=== PATIENT | female | born 1950 | race Caucasian/White ===

== ENCOUNTER 2018-01-19 10:31 | Inpatient (IN) | payer MEDICARE, MEDICAID ==
[~2018-01-19] VITALS: Ht 160 cm; Wt 77.3 kg
[2018-01-19] MEDS ORDERED: HYPERTENSION (10:37)
[2018-01-19] MEDS ORDERED: INSULIN (10:37)
[2018-01-19] MEDS ORDERED: ONDANSETRON HCL 4MG/2ML INJ IV STA (10:54)
[2018-01-19] MEDS ORDERED: SODIUM CHLORIDE 0.9% 1,000 ML IV ONE (10:54)
[2018-01-19] MEDS ORDERED: LORAZEPAM 0.5MG TABLET PO ONE (11:00)
[2018-01-19] MEDS ORDERED: MECLIZINE 12.5MG TABLET PO ONE (11:00)
[2018-01-19 11:24] LABS: BASOPHILS % 0.6 % (0.0-2.0); EOSINOPHILS % 3.7 % (0.0-5.0); HEMATOCRIT. 36.1 % (36.0-48.0); HEMOGLOBIN. 11.9 g/dL (12.0-16.0); LYMPHOCYTES % 18.8 % (20.0-50.0); MEAN CORPUSCULAR HEMOGLOBIN 29.3 pg (28.0-32.0); MEAN CORPUSCULAR VOLUME 89.1 fL (81.0-99.0); MEAN PLATELET VOLUME 11.3 fl (7.4-10.4); MONOCYTES % 6.2 % (2.0-8.0); NEUTROPHILS % 70.7 % (40.0-76.0); PLATELET 203 x1000/uL (130-400); RED BLOOD CELL COUNT 4.05 mill/uL (4.2-5.4); RED CELL DISTRIBUTION WIDTH 13.4 % (11.6-14.6)
[2018-01-19 11:49] LABS: CLARITY URINE CLEAR (CLEAR); COLOR URINE YELLOW (YELLOW); KETONES URINE NEGATIVE (NEGATIVE); LEUKOCYTE ESTERASE URINE NEGATIVE (NEGATIVE); NITRITE URINE NEGATIVE (NEGATIVE); OCCULT BLOOD URINE TRACE (NEGATIVE); PH URINE 5.5 (4.5-8.0); PROTEIN URINE 3+ (NEGATIVE); SPECIFIC GRAVITY URINE 1.011 (1.005-1.030); UROBILINOGEN URINE 0.2 E.U./dL (0.2-1.0)
[2018-01-19 12:06] LABS: CHLORIDE 109 mEq/L (98-107)
[2018-01-19 13:03] LABS: PROTHROMBIN TIME 10.5 sec (9.1-11.1)
[2018-01-19] MEDS ORDERED: CEFTRIAXONE 1 G PREMIX 50 ML IV ONE (13:15)
[2018-01-19] MEDS ORDERED: CLONIDINE 0.2MG TABLET PO ONE (14:15)
[2018-01-19] MEDS ORDERED: MECLIZINE 25MG TABLET PO PRN (14:15)
[2018-01-19] MEDS ORDERED: NIFEDIPINE XL 60MG TAB PO SCH (14:15)
[2018-01-19] MEDS ORDERED: NITROGLYCERIN OINT 1GM/INCH UDPKT TD ONE (14:15)
[2018-01-19] MEDS ORDERED: FUROSEMIDE 100MG/10ML VIAL IVP NR (15:15)
[2018-01-19] MEDS ORDERED: SODIUM BICARBONATE 8.4% 1 MEQ/ML 50ML SYR IV NR (15:15)
[2018-01-19] MEDS ORDERED: SODIUM BICARBONATE 4% (2.4MEQ) 5ML VIAL IV ONE (15:17)
[2018-01-19] MEDS ORDERED: LIDOCAINE HCL 1% 10 MG/ML 10ML VIAL ONE (15:17)
[2018-01-19 16:43] LABS: BG CARBOXYHEMOGLOBIN 0.5 % (0.5-1.5); BG DEOXYHEMOGLOBIN 4.1 % (0.0-5.0); BG FRACTION INSPIRED OXYGEN 21; BG HCO3 ACT 14.6 mmol/L (22.0-26.0); BG METHEMOGLOBIN 0.3 % (0.0-1.5); BG OXYGEN SATURATION 95.9 % (92.0-98.5); BG OXYHEMOGLOBIN 95.1 % (94.0-97.0); BG PCO2 28.8 mmHg (35.0-45.0); BG PH 7.323 (7.350-7.450); BG PO2 85.7 mmHg (75.0-100.0); BG SAMPLE SITE LEFT RADIAL; BG TOTAL HEMOGLOBIN 13.4 g/dL (12.0-18.0); BG VENT MODE ROOM AIR
[2018-01-19] MEDS ORDERED: CARV3.1242 PO (18:25)
[2018-01-19] MEDS ORDERED: LOSA25TA12 PO (18:25)
[2018-01-19] MEDS ORDERED: INSU100I28 SQ (18:27)
[2018-01-19 18:28] VITALS: BP 166/83
[2018-01-19] MEDS ORDERED: HEPARIN SODIUM 1,000 UNIT/1ML VIAL IV NR (18:39)
[2018-01-19] MEDS ORDERED: CITRIC ACID/SODIUM CITRATE SOLN 30ML UDC PO SCH (19:30)
[2018-01-19 19:37] VITALS: BP 115/61
[2018-01-19] MEDS: CITRIC ACID/SODIUM CITRATE SOLN 30ML UDC PO SCH (21:19)
[2018-01-19] MEDS ORDERED: DEXTROSE 50% WATER 50ML SYRINGE IV PRN (22:15)
[2018-01-19] MEDS: HYDROCODONE/ACETAMINOPHEN 10/325MG TABLET PO PRN (22:19)
[2018-01-20] VITALS (10 sets, daily range): BP systolic 129–180; BP diastolic 54–87
[2018-01-20] MEDS: HYDROCODONE/ACETAMINOPHEN 10/325MG TABLET PO PRN ×2 (05:21→21:07)
[2018-01-20 05:29] LABS: BASOPHILS % 0.1 % (0.0-2.0); EOSINOPHILS % 2.8 % (0.0-5.0); HEMATOCRIT. 30.6 % (36.0-48.0); HEMOGLOBIN. 10.3 g/dL (12.0-16.0); LYMPHOCYTES % 10.8 % (20.0-50.0); MEAN CORPUSCULAR HEMOGLOBIN 29.7 pg (28.0-32.0); MEAN CORPUSCULAR VOLUME 87.8 fL (81.0-99.0); MEAN PLATELET VOLUME 11.2 fl (7.4-10.4); MONOCYTES % 6.8 % (2.0-8.0); NEUTROPHILS % 79.5 % (40.0-76.0); PLATELET 157 x1000/uL (130-400); RED BLOOD CELL COUNT 3.48 mill/uL (4.2-5.4); RED CELL DISTRIBUTION WIDTH 13.3 % (11.6-14.6)
[2018-01-20 05:43] LABS: PHOSPHORUS 4.8 mg/dL (2.5-4.9)
[2018-01-20] MEDS: BLOOD SUGAR DIAGNOSTIC STRIP TEST SCH ×4 (06:44→20:25)
[2018-01-20 08:04] LABS: HEPATITIS B SURFACE AB < 3.1 mIU/mL
[2018-01-20 08:15] LABS: HEPATITIS B SURFACE ANTIGEN NEGATIVE
[2018-01-20 08:43] LABS: HEPATITIS B CORE AB IGM NEGATIVE
[2018-01-20] MEDS: CARVEDILOL 3.125 MG TABLET PO SCH ×2 (08:50→20:24)
[2018-01-20] MEDS: LOSARTAN POTASSIUM 25 MG TABLET PO SCH (08:51)
[2018-01-20] MEDS: CITRIC ACID/SODIUM CITRATE SOLN 30ML UDC PO SCH (08:51)
[2018-01-20] MEDS: INSULIN LISPRO 100 UNITS/ML SUBCUT SCH ×4 (08:57→20:25)
[2018-01-20] MEDS ORDERED: NIFEDIPINE XL 60MG TAB PO SCH (09:00)
[2018-01-20] MEDS ORDERED: MEDICATION NOT ON FORMULARY EA (Losartan Potassium 25 MG) PO SCH (09:00)
[2018-01-20] MEDS ORDERED: IOHEXOL-350 100 ML BOTTLE ONE (12:43)
[2018-01-20] MEDS ORDERED: CEFTRIAXONE 1 G PREMIX 50 ML IV SCH (14:00)
[2018-01-20] MEDS ORDERED: LORAZEPAM 2MG/ML CPJ IV NR (17:00)
[2018-01-20] MEDS: ONDANSETRON HCL 4MG/2ML INJ IV PRN (20:23)
[2018-01-20] MEDS: CLONIDINE 0.1MG TABLET PO PRN (20:23)
[2018-01-20] MEDS: ATORVASTATIN CALCIUM 20MG TABLET PO SCH (20:23)
[2018-01-20 20:45] LABS: ETHANOL BLOOD < 10 mg/dL
[2018-01-20 20:48] LABS: LDL CHOLESTEROL 82 mg/dL (5-100)
[2018-01-20 20:49] LABS: HDL CHOLESTEROL 33 mg/dL (40-59)
[2018-01-20 20:50] LABS: T4 FREE 1.32 ng/dL (0.76-1.46)
[2018-01-20 21:57] LABS: FOLIC ACID (FOLATE) SERUM >20 ng/mL ng/mL (>5.38)
[2018-01-20] MEDS ORDERED: INSULIN GLARGINE UD 100 UNITS/ML SYR SUBCUT SCH (22:00)
[2018-01-20 22:08] LABS: VITAMIN B12 SERUM 1615 pg/mL (211-911)
[2018-01-21] VITALS (11 sets, daily range): BP systolic 133–175; BP diastolic 57–89
[2018-01-21 00:30] LABS: *BARBITURATES SCREEN URINE NEGATIVE (NEGATIVE); *BENZODIAZEPINES SCREEN URINE NEGATIVE (NEGATIVE); *COCAINE SCREEN URINE NEGATIVE (NEGATIVE); METHADONE URINE SCREEN NEGATIVE (NEGATIVE); OPIATES URINE SCREEN PRESUMTIVE POSITIVE (NEGATIVE)
[2018-01-21 00:31] LABS: *AMPHETAMINES SCREEN URINE NEGATIVE (NEGATIVE); CANNABINOID URINE SCREEN NEGATIVE (NEGATIVE); PHENCYCLIDINE URINE SCREEN NEGATIVE (NEGATIVE)
[2018-01-21 07:11] LABS: BASOPHILS % 0.2 % (0.0-2.0); EOSINOPHILS % 1.7 % (0.0-5.0); HEMATOCRIT. 31.9 % (36.0-48.0); HEMOGLOBIN. 10.6 g/dL (12.0-16.0); LYMPHOCYTES % 10.6 % (20.0-50.0); MEAN CORPUSCULAR HEMOGLOBIN 29.4 pg (28.0-32.0); MEAN CORPUSCULAR VOLUME 88.6 fL (81.0-99.0); MEAN PLATELET VOLUME 11.3 fl (7.4-10.4); NEUTROPHILS % 81.5 % (40.0-76.0); PLATELET 154 x1000/uL (130-400); RED CELL DISTRIBUTION WIDTH 13.4 % (11.6-14.6)
[2018-01-21] MEDS: BLOOD SUGAR DIAGNOSTIC STRIP TEST SCH ×4 (07:41→21:59)
[2018-01-21 07:52] LABS: PHOSPHORUS 5.3 mg/dL (2.5-4.9)
[2018-01-21 08:18] LABS: A/G RATIO 0.9 (0.7-1.7); ALBUMIN 2.6 g/dL (2.9-4.4); ALPHA-1-GLOBULIN 0.2 g/dL (0.0-0.4); BETA GLOBULIN 0.8 g/dL (0.7-1.3); M-SPIKE Not Observed g/dL (Not Observed); TOTAL PROTEIN SERUM 5.6 g/dL (6.0-8.5)
[2018-01-21] MEDS: CARVEDILOL 3.125 MG TABLET PO SCH ×2 (08:33→20:41)
[2018-01-21] MEDS: INSULIN LISPRO 100 UNITS/ML SUBCUT SCH ×4 (08:34→21:00)
[2018-01-21] MEDS: HYDROCODONE/ACETAMINOPHEN 10/325MG TABLET PO PRN ×2 (09:31→20:59)
[2018-01-21] MEDS: ENOXAPARIN 80MG/0.8ML SYR SUBCUT SCH (10:43)
[2018-01-21] MEDS ORDERED: INSULIN GLARGINE UD 100 UNITS/ML SYR SUBCUT SCH (12:30)
[2018-01-21] MEDS: CEFTRIAXONE 1 G PREMIX 50 ML IV SCH (14:21)
[2018-01-21] MEDS ORDERED: WARFARIN SODIUM 7.5MG TABLET PO NR (18:00)
[2018-01-21] MEDS: NIFEDIPINE XL 60MG TAB PO SCH (20:40)
[2018-01-21] MEDS: LOSARTAN POTASSIUM 25 MG TABLET PO SCH (20:41)
[2018-01-21] MEDS: ATORVASTATIN CALCIUM 20MG TABLET PO SCH (20:41)
[2018-01-21] MEDS: GUAIFENESIN 200MG/10ML SUGAR FREE UDC PO PRN (22:07)
[2018-01-22] VITALS (12 sets, daily range): BP systolic 101–152; BP diastolic 50–87
[2018-01-22 07:13] LABS: INR 1.1; PROTHROMBIN TIME 11.1 sec (9.1-11.1)
[2018-01-22 07:15] LABS: BASOPHILS % 0.3 % (0.0-2.0); EOSINOPHILS % 3.9 % (0.0-5.0); HEMATOCRIT. 30.3 % (36.0-48.0); HEMOGLOBIN. 10.1 g/dL (12.0-16.0); LYMPHOCYTES % 16.3 % (20.0-50.0); MEAN CORPUSCULAR HEMOGLOBIN 29.6 pg (28.0-32.0); MEAN CORPUSCULAR VOLUME 88.7 fL (81.0-99.0); MEAN PLATELET VOLUME 11.4 fl (7.4-10.4); MONOCYTES % 8.6 % (2.0-8.0); NEUTROPHILS % 70.9 % (40.0-76.0); PLATELET 144 x1000/uL (130-400); RED BLOOD CELL COUNT 3.41 mill/uL (4.2-5.4)
[2018-01-22] MEDS: BLOOD SUGAR DIAGNOSTIC STRIP TEST SCH ×4 (07:27→20:39)
[2018-01-22] MEDS: INSULIN LISPRO 100 UNITS/ML SUBCUT SCH ×4 (08:00→20:58)
[2018-01-22] MEDS: CARVEDILOL 3.125 MG TABLET PO SCH ×2 (08:24→20:37)
[2018-01-22] MEDS: LOSARTAN POTASSIUM 25 MG TABLET PO SCH ×2 (08:25→20:37)
[2018-01-22] MEDS: NIFEDIPINE XL 60MG TAB PO SCH ×2 (08:25→20:37)
[2018-01-22 09:30] LABS: PHOSPHORUS 3.3 mg/dL (2.5-4.9)
[2018-01-22] MEDS: ENOXAPARIN 80MG/0.8ML SYR SUBCUT SCH (09:39)
[2018-01-22] MEDS: CEFTRIAXONE 1 G PREMIX 50 ML IV SCH (13:08)
[2018-01-22] MEDS ORDERED: WARFARIN SODIUM 7.5MG TABLET PO NR (18:00)
[2018-01-22] MEDS: ATORVASTATIN CALCIUM 20MG TABLET PO SCH (20:37)
[2018-01-23] VITALS (11 sets, daily range): BP systolic 115–151; BP diastolic 44–79
[2018-01-23] MEDS: BLOOD SUGAR DIAGNOSTIC STRIP TEST SCH ×4 (06:29→21:50)
[2018-01-23 06:45] LABS: INR 1.4; PROTHROMBIN TIME 13.9 sec (9.1-11.1)
[2018-01-23] MEDS: INSULIN LISPRO 100 UNITS/ML SUBCUT SCH ×4 (08:00→21:45)
[2018-01-23 08:38] LABS: BASOPHILS % 0.3 % (0.0-2.0); EOSINOPHILS % 3.4 % (0.0-5.0); HEMATOCRIT. 29.3 % (36.0-48.0); HEMOGLOBIN. 9.8 g/dL (12.0-16.0); LYMPHOCYTES % 16.1 % (20.0-50.0); MEAN CORPUSCULAR HEMOGLOBIN 29.5 pg (28.0-32.0); MEAN CORPUSCULAR VOLUME 88.2 fL (81.0-99.0); MEAN PLATELET VOLUME 11.5 fl (7.4-10.4); MONOCYTES % 7.9 % (2.0-8.0); NEUTROPHILS % 72.3 % (40.0-76.0); PLATELET 142 x1000/uL (130-400); RED BLOOD CELL COUNT 3.33 mill/uL (4.2-5.4); RED CELL DISTRIBUTION WIDTH 13.1 % (11.6-14.6)
[2018-01-23] MEDS: NIFEDIPINE XL 60MG TAB PO SCH ×2 (09:00→21:47)
[2018-01-23] MEDS: CARVEDILOL 3.125 MG TABLET PO SCH ×2 (09:00→21:49)
[2018-01-23] MEDS: LOSARTAN POTASSIUM 25 MG TABLET PO SCH ×2 (09:00→21:47)
[2018-01-23 09:20] LABS: PHOSPHORUS 3.9 mg/dL (2.5-4.9)
[2018-01-23] MEDS ORDERED: MIDAZOLAM HCL 2 MG/2 ML VIAL ONE (10:20)
[2018-01-23] MEDS ORDERED: FENTANYL CITRATE/PF 50MCG/ML 2ML VIAL ONE (10:20)
[2018-01-23] MEDS ORDERED: LIDOCAINE HCL 2% JELLY 5ML ONE (10:22)
[2018-01-23] MEDS ORDERED: TETRACAINE/BENZOCAINE/BUTAMBEN 20 GM SPRAY MM ONE (10:22)
[2018-01-23] MEDS: ENOXAPARIN 80MG/0.8ML SYR SUBCUT SCH (12:29)
[2018-01-23] MEDS ORDERED: LACTULOSE 20G/30ML UDC PO PRN (14:45)
[2018-01-23] MEDS ORDERED: BISACODYL 10MG SUPP PR NR (15:17)
[2018-01-23] MEDS: CEFTRIAXONE 1 G PREMIX 50 ML IV SCH (15:27)
[2018-01-23] MEDS: LACTULOSE 20G/30ML UDC PO SCH ×2 (17:47→21:47)
[2018-01-23] MEDS ORDERED: WARFARIN SODIUM 7.5MG TABLET PO SCH (18:00)
[2018-01-23] MEDS: INSULIN GLARGINE UD 100 UNITS/ML SYR SUBCUT SCH (21:46)
[2018-01-23] MEDS: ATORVASTATIN CALCIUM 20MG TABLET PO SCH (21:49)
[2018-01-24] VITALS (12 sets, daily range): BP systolic 118–156; BP diastolic 42–76
[2018-01-24] MEDS: BLOOD SUGAR DIAGNOSTIC STRIP TEST SCH ×4 (06:59→20:31)
[2018-01-24] MEDS: LACTULOSE 20G/30ML UDC PO SCH (08:28)
[2018-01-24] MEDS: LOSARTAN POTASSIUM 25 MG TABLET PO SCH ×2 (08:50→20:31)
[2018-01-24] MEDS: NIFEDIPINE XL 60MG TAB PO SCH ×2 (08:50→21:57)
[2018-01-24] MEDS: CARVEDILOL 3.125 MG TABLET PO SCH ×2 (08:51→20:30)
[2018-01-24] MEDS: INSULIN LISPRO 100 UNITS/ML SUBCUT SCH ×4 (08:52→20:46)
[2018-01-24 09:10] LABS: BASOPHILS % 0.4 % (0.0-2.0); EOSINOPHILS % 3.1 % (0.0-5.0); HEMATOCRIT. 31.5 % (36.0-48.0); HEMOGLOBIN. 10.5 g/dL (12.0-16.0); LYMPHOCYTES % 11.5 % (20.0-50.0); MEAN CORPUSCULAR HEMOGLOBIN 29.5 pg (28.0-32.0); MEAN CORPUSCULAR VOLUME 88.4 fL (81.0-99.0); MEAN PLATELET VOLUME 11.4 fl (7.4-10.4); MONOCYTES % 7.2 % (2.0-8.0); NEUTROPHILS % 77.8 % (40.0-76.0); PLATELET 150 x1000/uL (130-400); RED BLOOD CELL COUNT 3.57 mill/uL (4.2-5.4)
[2018-01-24 09:15] LABS: INR 2.4; PROTHROMBIN TIME 24.1 sec (9.1-11.1)
[2018-01-24 09:37] LABS: PHOSPHORUS 2.9 mg/dL (2.5-4.9)
[2018-01-24] MEDS: ENOXAPARIN 80MG/0.8ML SYR SUBCUT SCH (11:01)
[2018-01-24] MEDS: CEFTRIAXONE 1 G PREMIX 50 ML IV SCH (13:45)
[2018-01-24] MEDS: DOCUSATE SODIUM 100MG CAPSULE PO SCH (16:52)
[2018-01-24] MEDS ORDERED: WARFARIN SODIUM 4MG TABLET PO SCH (18:00)
[2018-01-24] MEDS: ATORVASTATIN CALCIUM 20MG TABLET PO SCH (20:30)
[2018-01-24] MEDS: GUAIFENESIN 200MG/10ML SUGAR FREE UDC PO PRN (20:49)
[2018-01-24] MEDS: INSULIN GLARGINE UD 100 UNITS/ML SYR SUBCUT SCH (23:13)
[2018-01-25] VITALS (13 sets, daily range): BP systolic 122–165; BP diastolic 46–70
[2018-01-25] MEDS: CLONIDINE 0.1MG TABLET PO PRN (04:50)
[2018-01-25] MEDS: GUAIFENESIN 200MG/10ML SUGAR FREE UDC PO PRN ×2 (04:53→20:49)
[2018-01-25] MEDS: BLOOD SUGAR DIAGNOSTIC STRIP TEST SCH ×4 (07:25→20:38)
[2018-01-25] MEDS: INSULIN LISPRO 100 UNITS/ML SUBCUT SCH ×4 (07:44→20:49)
[2018-01-25] MEDS: DOCUSATE SODIUM 100MG CAPSULE PO SCH ×2 (09:00→18:00)
[2018-01-25] MEDS: ONDANSETRON HCL 4MG/2ML INJ IV PRN (09:35)
[2018-01-25 09:36] LABS: BASOPHILS % 0.5 % (0.0-2.0); EOSINOPHILS % 3.9 % (0.0-5.0); HEMATOCRIT. 30.2 % (36.0-48.0); HEMOGLOBIN. 9.9 g/dL (12.0-16.0); LYMPHOCYTES % 19.7 % (20.0-50.0); MEAN CORPUSCULAR HEMOGLOBIN 29.3 pg (28.0-32.0); MEAN CORPUSCULAR VOLUME 89.1 fL (81.0-99.0); MEAN PLATELET VOLUME 11.7 fl (7.4-10.4); NEUTROPHILS % 67.9 % (40.0-76.0); PLATELET 159 x1000/uL (130-400); RED BLOOD CELL COUNT 3.39 mill/uL (4.2-5.4); RED CELL DISTRIBUTION WIDTH 13.5 % (11.6-14.6)
[2018-01-25] MEDS: CARVEDILOL 3.125 MG TABLET PO SCH ×2 (09:36→20:38)
[2018-01-25] MEDS: NIFEDIPINE XL 60MG TAB PO SCH ×2 (09:36→22:12)
[2018-01-25] MEDS: LOSARTAN POTASSIUM 25 MG TABLET PO SCH ×2 (09:36→20:38)
[2018-01-25 09:41] LABS: INR 3.1; PROTHROMBIN TIME 30.8 sec (9.1-11.1)
[2018-01-25] MEDS ORDERED: NA PHOS,M-B/NA PHOS,DI-BA ENEMA 118ML PR NR (13:00)
[2018-01-25] MEDS ORDERED: NA PHOS,M-B/NA PHOS,DI-BA ENEMA 118ML PR PRN (13:15)
[2018-01-25] MEDS: CEFTRIAXONE 1 G PREMIX 50 ML IV SCH (13:28)
[2018-01-25] MEDS: ATORVASTATIN CALCIUM 20MG TABLET PO SCH (20:38)
[2018-01-25] MEDS: POLYETHYLENE GLYCOL 3350 (17GM) 1 DOSE PACK PO SCH (20:38)
[2018-01-25] MEDS: INSULIN GLARGINE UD 100 UNITS/ML SYR SUBCUT SCH (22:18)
[2018-01-26] VITALS (11 sets, daily range): BP systolic 122–154; BP diastolic 45–91
[2018-01-26 07:01] LABS: INR 2.4; PROTHROMBIN TIME 24.1 sec (9.1-11.1)
[2018-01-26 07:05] LABS: BASOPHILS % 0.4 % (0.0-2.0); EOSINOPHILS % 3.3 % (0.0-5.0); HEMATOCRIT. 29.5 % (36.0-48.0); HEMOGLOBIN. 9.8 g/dL (12.0-16.0); LYMPHOCYTES % 13.5 % (20.0-50.0); MEAN CORPUSCULAR HEMOGLOBIN 29.6 pg (28.0-32.0); MEAN CORPUSCULAR VOLUME 88.8 fL (81.0-99.0); MEAN PLATELET VOLUME 11.1 fl (7.4-10.4); MONOCYTES % 6.9 % (2.0-8.0); NEUTROPHILS % 75.9 % (40.0-76.0); PLATELET 146 x1000/uL (130-400); RED BLOOD CELL COUNT 3.32 mill/uL (4.2-5.4); RED CELL DISTRIBUTION WIDTH 13.1 % (11.6-14.6)
[2018-01-26] MEDS: BLOOD SUGAR DIAGNOSTIC STRIP TEST SCH ×4 (07:30→20:56)
[2018-01-26] MEDS: INSULIN LISPRO 100 UNITS/ML SUBCUT SCH ×4 (08:00→21:05)
[2018-01-26] MEDS: DOCUSATE SODIUM 100MG CAPSULE PO SCH ×2 (09:00→17:00)
[2018-01-26] MEDS: LOSARTAN POTASSIUM 25 MG TABLET PO SCH ×2 (09:00→20:46)
[2018-01-26] MEDS: CARVEDILOL 3.125 MG TABLET PO SCH ×2 (09:00→20:47)
[2018-01-26] MEDS: NIFEDIPINE XL 60MG TAB PO SCH ×2 (09:00→20:46)
[2018-01-26 09:09] LABS: PHOSPHORUS 3.2 mg/dL (2.5-4.9)
[2018-01-26] MEDS: CEFTRIAXONE 1 G PREMIX 50 ML IV SCH (14:37)
[2018-01-26] MEDS ORDERED: WARFARIN SODIUM 4MG TABLET PO SCH (18:00)
[2018-01-26] MEDS: ATORVASTATIN CALCIUM 20MG TABLET PO SCH (20:46)
[2018-01-26] MEDS: GUAIFENESIN 200MG/10ML SUGAR FREE UDC PO PRN (20:47)
[2018-01-26] MEDS: POLYETHYLENE GLYCOL 3350 (17GM) 1 DOSE PACK PO SCH ×2 (20:47→21:00)
[2018-01-26] MEDS: INSULIN GLARGINE UD 100 UNITS/ML SYR SUBCUT SCH (21:06)
[2018-01-27] VITALS (23 sets, daily range): BP systolic 128–175; BP diastolic 52–72
[2018-01-27 07:37] LABS: BASOPHILS % 0.5 % (0.0-2.0); EOSINOPHILS % 2.5 % (0.0-5.0); HEMATOCRIT. 30.3 % (36.0-48.0); HEMOGLOBIN. 10.1 g/dL (12.0-16.0); LYMPHOCYTES % 16.2 % (20.0-50.0); MEAN CORPUSCULAR HEMOGLOBIN 29.8 pg (28.0-32.0); MEAN CORPUSCULAR VOLUME 89.4 fL (81.0-99.0); MEAN PLATELET VOLUME 11.2 fl (7.4-10.4); MONOCYTES % 6.6 % (2.0-8.0); NEUTROPHILS % 74.2 % (40.0-76.0); PLATELET 159 x1000/uL (130-400); RED BLOOD CELL COUNT 3.39 mill/uL (4.2-5.4); RED CELL DISTRIBUTION WIDTH 13.5 % (11.6-14.6)
[2018-01-27 07:47] LABS: INR 1.7; PROTHROMBIN TIME 17.2 sec (9.1-11.1)
[2018-01-27] MEDS: INSULIN LISPRO 100 UNITS/ML SUBCUT SCH ×4 (07:48→22:49)
[2018-01-27] MEDS: BLOOD SUGAR DIAGNOSTIC STRIP TEST SCH ×4 (07:48→21:07)
[2018-01-27] MEDS: DOCUSATE SODIUM 100MG CAPSULE PO SCH ×2 (09:10→17:04)
[2018-01-27] MEDS: LOSARTAN POTASSIUM 25 MG TABLET PO SCH ×2 (09:11→21:00)
[2018-01-27] MEDS: NIFEDIPINE XL 60MG TAB PO SCH ×2 (09:11→21:00)
[2018-01-27] MEDS: CARVEDILOL 3.125 MG TABLET PO SCH ×2 (09:11→21:00)
[2018-01-27] MEDS ORDERED: SODIUM BICARBONATE 4% (2.4MEQ) 5ML VIAL IV ONE (12:52)
[2018-01-27] MEDS ORDERED: LIDOCAINE HCL 1% 10 MG/ML 10ML VIAL ONE (12:53)
[2018-01-27] MEDS ORDERED: HEPARIN 1000 UNITS/ML 10ML ONE (12:53)
[2018-01-27] MEDS ORDERED: CEFAZOLIN 1000MG PREMIX 50 ML IV ONE ×2 (13:18→14:00)
[2018-01-27] MEDS ORDERED: FENTANYL CITRATE/PF 50MCG/ML 2ML VIAL ONE (13:19)
[2018-01-27] MEDS ORDERED: MIDAZOLAM HCL 2 MG/2 ML VIAL ONE (13:19)
[2018-01-27] MEDS ORDERED: MIDAZOLAM HCL 2 MG/2 ML VIAL IV ONE (14:00)
[2018-01-27] MEDS ORDERED: FENTANYL CITRATE/PF 50MCG/ML 2ML VIAL IV ONE (14:00)
[2018-01-27] MEDS ORDERED: MIDAZOLAM HCL 5 MG/5 ML VIAL IV ONE (14:00)
[2018-01-27] MEDS ORDERED: WARFARIN SODIUM 5MG TABLET PO NR (18:00)
[2018-01-27] MEDS: ATORVASTATIN CALCIUM 20MG TABLET PO SCH (21:00)
[2018-01-27] MEDS: POLYETHYLENE GLYCOL 3350 (17GM) 1 DOSE PACK PO SCH ×2 (21:00→21:01)
[2018-01-27] MEDS: INSULIN GLARGINE UD 100 UNITS/ML SYR SUBCUT SCH (22:50)
[2018-01-27] MEDS: CLONIDINE 0.1MG TABLET PO PRN (23:01)
[2018-01-28] VITALS (11 sets, daily range): BP systolic 127–172; BP diastolic 47–76
[2018-01-28] MEDS: GUAIFENESIN 200MG/10ML SUGAR FREE UDC PO PRN (01:13)
[2018-01-28] MEDS: BLOOD SUGAR DIAGNOSTIC STRIP TEST SCH ×3 (07:08→17:20)
[2018-01-28] MEDS: INSULIN LISPRO 100 UNITS/ML SUBCUT SCH ×3 (07:09→18:01)
[2018-01-28 07:14] LABS: BASOPHILS % 0.6 % (0.0-2.0); EOSINOPHILS % 2.1 % (0.0-5.0); HEMATOCRIT. 30.1 % (36.0-48.0); LYMPHOCYTES % 12.3 % (20.0-50.0); MEAN CORPUSCULAR HEMOGLOBIN 29.8 pg (28.0-32.0); MEAN CORPUSCULAR VOLUME 89.4 fL (81.0-99.0); MEAN PLATELET VOLUME 10.8 fl (7.4-10.4); MONOCYTES % 6.2 % (2.0-8.0); NEUTROPHILS % 78.8 % (40.0-76.0); PLATELET 162 x1000/uL (130-400); RED BLOOD CELL COUNT 3.36 mill/uL (4.2-5.4); RED CELL DISTRIBUTION WIDTH 13.5 % (11.6-14.6)
[2018-01-28 07:16] LABS: PROTHROMBIN TIME 20.1 sec (9.1-11.1)
[2018-01-28] MEDS: LOSARTAN POTASSIUM 25 MG TABLET PO SCH (08:32)
[2018-01-28] MEDS: DOCUSATE SODIUM 100MG CAPSULE PO SCH ×2 (08:32→17:59)
[2018-01-28] MEDS: CARVEDILOL 3.125 MG TABLET PO SCH (08:33)
[2018-01-28] MEDS: NIFEDIPINE XL 60MG TAB PO SCH (08:34)
[2018-01-28 10:03] LABS: PHOSPHORUS 2.8 mg/dL (2.5-4.9)
[2018-01-28] MEDS ORDERED: WARFARIN SODIUM 3MG TABLET PO NR (18:00)
== END 2018-01-28 19:58 | disposition home health service (06) | DRG 45 ==
LOC: ER 10:31 → 6WST 13:21 → ENRESERV 14:02 → 5EST 01-20 14:03
PROVIDERS: ADMIT Family Medicine; ATTEND Family Medicine
PROC: 02HV33Z Insertion of Infusion Device into Superior Vena Cava, Percutaneous Approach (ICD-10-PCS; principal; 2018-01-19)
PROC: B548ZZA Ultrasonography of Superior Vena Cava, Guidance (ICD-10-PCS; 2018-01-19)
PROC: B5181ZA Fluoroscopy of Superior Vena Cava using Low Osmolar Contrast, Guidance (ICD-10-PCS; 2018-01-19)
PROC: 5A1D70Z Performance of Urinary Filtration, Intermittent, Less than 6 Hours Per Day (ICD-10-PCS; 2018-01-19)
PROC: 5A1D70Z Performance of Urinary Filtration, Intermittent, Less than 6 Hours Per Day (ICD-10-PCS; 2018-01-20)
PROC: 5A1D70Z Performance of Urinary Filtration, Intermittent, Less than 6 Hours Per Day (ICD-10-PCS; 2018-01-21)
PROC: 5A1D70Z Performance of Urinary Filtration, Intermittent, Less than 6 Hours Per Day (ICD-10-PCS; 2018-01-23)
PROC: B24BZZ4 Ultrasonography of Heart with Aorta, Transesophageal (ICD-10-PCS; 2018-01-23)
PROC: 5A1D70Z Performance of Urinary Filtration, Intermittent, Less than 6 Hours Per Day (ICD-10-PCS; 2018-01-26)
PROC: 0JH63XZ Insertion of Tunneled Vascular Access Device into Chest Subcutaneous Tissue and Fascia, Percutaneous Approach (ICD-10-PCS; 2018-01-27)
PROC: 02HV33Z Insertion of Infusion Device into Superior Vena Cava, Percutaneous Approach (ICD-10-PCS; 2018-01-27)
PROC: B5181ZA Fluoroscopy of Superior Vena Cava using Low Osmolar Contrast, Guidance (ICD-10-PCS; 2018-01-27)
PROC: 02PYX3Z Removal of Infusion Device from Great Vessel, External Approach (ICD-10-PCS; 2018-01-27)
DX: I63.9 Cerebral infarction, unspecified (principal); E43 Unspecified severe protein-calorie malnutrition; G93.40 Encephalopathy, unspecified; N17.9 Acute kidney failure, unspecified; I13.2 Hypertensive heart and chronic kidney disease with heart failure and with stage 5 chronic kidney disease, or end stage renal disease; R13.10 Dysphagia, unspecified; G90.8 Other disorders of autonomic nervous system; E11.22 Type 2 diabetes mellitus with diabetic chronic kidney disease; H53.461 Homonymous bilateral field defects, right side; E87.2 Acidosis; H53.462 Homonymous bilateral field defects, left side; E87.5 Hyperkalemia; E87.8 Other disorders of electrolyte and fluid balance, not elsewhere classified; D72.829 Elevated white blood cell count, unspecified; E66.9 Obesity, unspecified; D63.8 Anemia in other chronic diseases classified elsewhere; E78.2 Mixed hyperlipidemia; N18.6 End stage renal disease; G31.84 Mild cognitive impairment of uncertain or unknown etiology; I50.30 Unspecified diastolic (congestive) heart failure; R47.1 Dysarthria and anarthria; G81.91 Hemiplegia, unspecified affecting right dominant side; G81.94 Hemiplegia, unspecified affecting left nondominant side; H54.7 Unspecified visual loss; R47.01 Aphasia; Z79.4 Long term (current) use of insulin; Z79.899 Other long term (current) drug therapy; Z82.49 Family history of ischemic heart disease and other diseases of the circulatory system; Z83.3 Family history of diabetes mellitus; Z99.2 Dependence on renal dialysis; Z90.49 Acquired absence of other specified parts of digestive tract; Z98.891 History of uterine scar from previous surgery; Z68.30 Body mass index [BMI] 30.0-30.9, adult
CPT/HCPCS: 36415; 36556; 36558; 36589; 36600; 70450; 70496; 70544; 70553; 71045; 74018; 76937; 77001; 80048; 80053; 80061; 80305; 81003; 82375; 82607; 82746; 82805; 82962; 83036; 83605; 83735; 83880; 84100; 84155; 84165; 84439; 84443; 84481; 84484; 85025; 85610; 86705; 86706; 86803; 87040; 87340; 92523; 92610; 93005; 93306; 93312; 93880; 96361; 96365; 96375; 97116; 97127; 97162; 97166; 97530; 99285; C1750; C1752; C1769; G0482; G0515; J0690; J0696; J1642; J1644; J1650; J1815; J1940; J2060; J2250; J2405; J3010; J3490; J7030; J7050; J8597; Q9967